=== PATIENT | male | born 1975 | race Caucasian/White ===

== ENCOUNTER 2017-01-14 16:45 | Inpatient (IN) | payer MEDICARE, MEDICAID ==
[2017-01-14 17:00] VITALS: BP 98/58
[2017-01-14] MEDS ORDERED: HALOPERIDOL 5 MG TABLET PO PRN (17:15)
[2017-01-14] MEDS ORDERED: LORazepam 2 MG TABLET PO PRN (17:15)
[2017-01-14] MEDS: ZOLPIDEM TARTRATE 10 MG TABLET PO PRN (23:56)
[2017-01-15 06:18] LABS: BASOPHILS % (AUTO) 0.6 % (0.0-2.0); EOSINOPHILS % (AUTO) 2.2 % (1.0-6.0); HEMATOCRIT 40.5 % (41-53); HEMOGLOBIN 13.7 g/dL (13.5-17.5); LYMPHOCYTES # (AUTO) 2.6 K/uL (1.0-4.8); LYMPHOCYTES % (AUTO) 39.3 % (22.0-44.0); MEAN CORPUSCULAR HEMOGLOBIN 32.4 pg (26.0-34.0); MEAN CORPUSCULAR HGB CONC 33.8 G/dL (31.0-37.0); MEAN CORPUSCULAR VOLUME 96 fL (80-100); MONOCYTES # (AUTO) 0.5 K/uL (0.1-1.0); MONOCYTES % (AUTO) 8.1 % (2.0-9.0); NEUTROPHILS # (AUTO) 3.3 K/uL (1.8-7.7); NEUTROPHILS % (AUTO) 49.8 % (40.0-70.0); PLATELET COUNT (AUTO) 203 K/uL (150-450); RED BLOOD CELL COUNT(AUTO) 4.23 MIL/uL (4.50-5.90); RED CELL DISTRIBUTION WIDTH 15.1 % (11.5-14.5); WHITE BLOOD COUNT (AUTO) 6.6 K/uL (4.5-11.0)
[2017-01-15 06:31] LABS: ALANINE AMINOTRANSFERASE 17 U/L (12-78); ALBUMIN 3.2 g/dL (3.4-5.0); ANION GAP 8 mmol/L (8-16); ASPARTATE AMINOTRANSFERASE 11 U/L (15-37); BILIRUBIN,TOTAL 0.2 mg/dL (0.1-1.0); CALCIUM, TOTAL 8.5 mg/dL (8.8-10.5); CARBON DIOXIDE 28 mmol/L (22-29); CHLORIDE 108 mmol/L (98-107); CHOL/HDL RATIO 2.5 (4.2-7.3); CREATININE 0.71 mg/dL (0.60-1.30); GLOMERULAR FILTR. RATE CALC > 60 mL/min (>60); POTASSIUM 4.2 mmol/L (3.5-5.1); SODIUM SERUM 144 mmol/L (136-145); TOTAL PROTEIN, SERUM 6.4 g/dL (6.4-8.2); UREA NITROGEN, BLOOD 13 mg/dL (7-18)
[2017-01-15 09:00] VITALS: BP 113/72
[2017-01-15] MEDS: ESCITALOPRAM OXALATE 10 MG TABLET PO SCH (11:15)
[2017-01-15] MEDS: NICOTINE 14 MG/24 HOUR PATCH TD SCH (11:15)
[2017-01-15] MEDS ORDERED: BISACODYL 5 MG EC TABLET PO PRN (13:00)
[2017-01-15 16:56] VITALS: BP 107/71
[2017-01-15] MEDS: ZOLPIDEM TARTRATE 10 MG TABLET PO PRN (20:23)
[2017-01-16] MEDS: ESCITALOPRAM OXALATE 10 MG TABLET PO SCH (08:10)
[2017-01-16] MEDS: NICOTINE 14 MG/24 HOUR PATCH TD SCH (08:11)
[2017-01-16 08:16] VITALS: BP 119/78
[2017-01-16] MEDS ORDERED: ESCI10TA PO (11:20)
== END 2017-01-16 14:15 | disposition home or self-care (01) | DRG 885 ==
LOC: 3EC 16:45
PROVIDERS: ADMIT Psychiatry & Neurology Child & Adolescent Psychiatry; ATTEND Psychiatry & Neurology Child & Adolescent Psychiatry
DX: F33.2 Major depressive disorder, recurrent severe without psychotic features (principal); R45.851 Suicidal ideations; F17.200 Nicotine dependence, unspecified, uncomplicated; Z79.899 Other long term (current) drug therapy; F41.9 Anxiety disorder, unspecified; K59.00 Constipation, unspecified; F60.3 Borderline personality disorder

== ENCOUNTER 2018-02-24 11:08 | Inpatient (IN) | payer MEDICARE, MEDICAID ==
[~2018-02-24] VITALS: Ht 172.7 cm; Wt 61.2 kg
[~2018-02-24 11:08] MED LIST: ESCI10TA PO
[2018-02-24 12:28] LABS: BASOPHILS % (AUTO) 0.6 % (0.0-2.0); EOSINOPHILS % (AUTO) 1.5 % (1.0-6.0); HEMATOCRIT 37.9 % (41-53); LYMPHOCYTES # (AUTO) 1.7 K/uL (1.0-4.8); LYMPHOCYTES % (AUTO) 38.7 % (22.0-44.0); MEAN CORPUSCULAR HEMOGLOBIN 31.2 pg (26.0-34.0); MEAN CORPUSCULAR HGB CONC 34.4 G/dL (31.0-37.0); MEAN CORPUSCULAR VOLUME 91 fL (80-100); MONOCYTES # (AUTO) 0.5 K/uL (0.1-1.0); MONOCYTES % (AUTO) 11.6 % (2.0-9.0); NEUTROPHILS # (AUTO) 2.2 K/uL (1.8-7.7); NEUTROPHILS % (AUTO) 47.6 % (40.0-70.0); PLATELET COUNT (AUTO) 288 K/uL (150-450); RED BLOOD CELL COUNT(AUTO) 4.18 MIL/uL (4.50-5.90); RED CELL DISTRIBUTION WIDTH 13.5 % (11.5-14.5)
[2018-02-24 12:35] LABS: ANION GAP 7 mmol/L (8-16); CALCIUM, TOTAL 8.2 mg/dL (8.8-10.5); CARBON DIOXIDE 30 mmol/L (22-29); CHLORIDE 107 mmol/L (98-107); CREATININE 0.88 mg/dL (0.60-1.30); GLOMERULAR FILTR. RATE CALC > 60 mL/min (>60); GLUCOSE,RANDOM 114 mg/dL (70-110); POTASSIUM 3.6 mmol/L (3.5-5.1); SODIUM SERUM 144 mmol/L (136-145); UREA NITROGEN, BLOOD 14 mg/dL (7-18)
[2018-02-24 12:42] LABS: ALANINE AMINOTRANSFERASE 20 U/L (12-78); ALBUMIN 3.3 g/dL (3.4-5.0); ALKALINE PHOSPHATASE 101 U/L (46-116); ASPARTATE AMINOTRANSFERASE 16 U/L (15-37); BILIRUBIN,TOTAL 0.2 mg/dL (0.1-1.0); TOTAL PROTEIN, SERUM 7.3 g/dL (6.4-8.2)
[2018-02-24] MEDS ORDERED: DiphenhydrAMINE HCL 25 MG CAPSULE PO ONE (13:00)
[2018-02-24] MEDS ORDERED: HALOPERIDOL 5 MG TABLET PO ONE (13:00)
[2018-02-24] MEDS: LORazepam 2 MG TABLET PO ONE ×2 (13:08→13:21)
[2018-02-24] MEDS ORDERED: ZOLPIDEM TARTRATE 10 MG TABLET PO PRN (13:15)
[2018-02-24] MEDS ORDERED: HALOPERIDOL LACTATE 5 MG/ML VIAL ONE (13:38)
[2018-02-24] MEDS ORDERED: DiphenhydrAMINE HCL 50 MG/ML VIAL ONE (13:38)
[2018-02-24] MEDS ORDERED: LORazepam 2 MG/ML VIAL ONE (13:38)
[2018-02-24] MEDS ORDERED: HALOPERIDOL LACTATE 5 MG/ML VIAL IM ONE (13:45)
[2018-02-24] MEDS ORDERED: LORazepam 2 MG/ML VIAL IM ONE (13:45)
[2018-02-24] MEDS ORDERED: DiphenhydrAMINE HCL 50 MG/ML VIAL IM ONE (13:45)
[2018-02-24 16:28] VITALS: BP 103/64
[2018-02-24] MEDS ORDERED: GuaiFENesin/D-METHORPHAN [SUGAR-FREE] 200-20MG/10 ML SYRUP UDCUP PO PRN (17:00)
[2018-02-24] MEDS ORDERED: PETROLATUM,WHITE 71 GM JELLY TP PRN (17:00)
[2018-02-24] MEDS ORDERED: MAGNESIUM HYDROXIDE SUSPENSION 30 ML UDCUP PO PRN (17:00)
[2018-02-24] MEDS ORDERED: ALBUTEROL SULFATE HFA 90 MCG/PUFF 8 GM INHALER IH PRN (17:00)
[2018-02-24] MEDS ORDERED: ONDANSETRON HCL 4 MG TABLET PO PRN (17:00)
[2018-02-24] MEDS ORDERED: ACETAMINOPHEN 325 MG TABLET PO PRN (17:00)
[2018-02-24] MEDS ORDERED: NICOTINE 14 MG/24 HOUR PATCH TD PRN (17:00)
[2018-02-24] MEDS ORDERED: MAG HYDROX/AL HYDROX/SIMETH ES 30 ML SUSPENSION UDCUP PO PRN (17:00)
[2018-02-24] MEDS ORDERED: DOCUSATE SODIUM 100 MG CAPSULE PO PRN (17:00)
[2018-02-24] MEDS ORDERED: IBUPROFEN 400 MG TABLET PO PRN (17:00)
[2018-02-24] MEDS ORDERED: LOPERAMIDE HCL 2 MG CAPSULE PO PRN (17:00)
[2018-02-24] MEDS ORDERED: CloNIDine HCL 0.1 MG TABLET PO PRN (17:00)
[2018-02-24] MEDS: BACITRACIN 28.4 GM OINTMENT TP SCH (18:13)
[2018-02-24] MEDS: FERROUS SULFATE 325 MG EC TABLET PO SCH (18:13)
[2018-02-25 04:32] VITALS: BP 118/66
[2018-02-25] MEDS: FERROUS SULFATE 325 MG EC TABLET PO SCH ×3 (06:22→16:35)
[2018-02-25 08:04] VITALS: BP 114/62
[2018-02-25] MEDS: BACITRACIN 28.4 GM OINTMENT TP SCH ×2 (09:09→16:35)
[2018-02-25] MEDS: ARIPiprazole 10 MG TABLET PO SCH (12:05)
[2018-02-25 16:00] VITALS: BP 105/64
[2018-02-25] MEDS: HALOPERIDOL 5 MG TABLET PO PRN (16:35)
[2018-02-25] MEDS: LORazepam 2 MG TABLET PO PRN (16:35)
[2018-02-26] MEDS: FERROUS SULFATE 325 MG EC TABLET PO SCH ×3 (06:53→17:23)
[2018-02-26 07:02] VITALS: BP 109/67
[2018-02-26 08:04] VITALS: BP 111/65
[2018-02-26] MEDS: ARIPiprazole 10 MG TABLET PO SCH (08:30)
[2018-02-26] MEDS: BACITRACIN 28.4 GM OINTMENT TP SCH ×2 (08:33→17:22)
[2018-02-26 08:46] LABS: HEMOGLOBIN A1C 5.2 % (4.5-6.2)
[2018-02-26 09:32] LABS: CHOL/HDL RATIO 2.5 (4.2-7.3); THYROID STIMULATING HORMONE 0.74 uIU/mL (0.36-3.74)
[2018-02-26 16:00] VITALS: BP 112/72
[2018-02-26] MEDS: HALOPERIDOL 5 MG TABLET PO PRN (17:22)
[2018-02-26] MEDS: LORazepam 2 MG TABLET PO PRN (17:22)
[2018-02-27 06:28] VITALS: BP 109/68
[2018-02-27] MEDS: FERROUS SULFATE 325 MG EC TABLET PO SCH ×3 (07:03→17:11)
[2018-02-27 08:04] VITALS: BP 108/74
[2018-02-27] MEDS: LORazepam 2 MG TABLET PO PRN ×2 (08:24→17:11)
[2018-02-27] MEDS: ARIPiprazole 10 MG TABLET PO SCH (08:24)
[2018-02-27] MEDS: BACITRACIN 28.4 GM OINTMENT TP SCH ×2 (08:44→17:11)
[2018-02-27 08:46] LABS: % IRON SATURATION 15.1 % (30-44)
[2018-02-27 16:31] VITALS: BP 116/78
[2018-02-27] MEDS: HALOPERIDOL 5 MG TABLET PO PRN (17:11)
[2018-02-28 06:36] VITALS: BP 118/65
[2018-02-28] MEDS: FERROUS SULFATE 325 MG EC TABLET PO SCH ×2 (06:43→17:00)
[2018-02-28] MEDS: BACITRACIN 28.4 GM OINTMENT TP SCH ×2 (08:30→17:00)
[2018-02-28 08:52] VITALS: BP 114/71
[2018-02-28] MEDS ORDERED: ARIPiprazole 15 MG TABLET PO SCH (09:00)
[2018-02-28 16:24] VITALS: BP 115/75
[2018-03-01 05:32] VITALS: BP 118/74
[2018-03-01] MEDS: FERROUS SULFATE 325 MG EC TABLET PO SCH ×2 (06:13→16:17)
[2018-03-01] MEDS: LORazepam 2 MG TABLET PO PRN ×2 (08:00→16:17)
[2018-03-01] MEDS: ARIPiprazole 15 MG TABLET PO SCH (08:00)
[2018-03-01] MEDS: BACITRACIN 28.4 GM OINTMENT TP SCH ×2 (08:48→16:17)
[2018-03-01 16:05] VITALS: BP 116/70
[2018-03-01] MEDS: HALOPERIDOL 5 MG TABLET PO PRN (16:17)
[2018-03-02] MEDS: FERROUS SULFATE 325 MG EC TABLET PO SCH ×2 (06:22→16:59)
[2018-03-02 06:32] VITALS: BP 118/76
[2018-03-02 08:04] VITALS: BP 107/77
[2018-03-02] MEDS: BACITRACIN 28.4 GM OINTMENT TP SCH ×2 (09:00→16:59)
[2018-03-02] MEDS: ARIPiprazole 15 MG TABLET PO SCH ×2 (09:00→09:33)
[2018-03-02 16:12] VITALS: BP 110/74
[2018-03-03 05:09] VITALS: BP 118/76
[2018-03-03] MEDS: FERROUS SULFATE 325 MG EC TABLET PO SCH (06:33)
[2018-03-03] MEDS ORDERED: FERR-89 PO (08:32)
[2018-03-03] MEDS ORDERED: ARIP30TA PO (08:32)
[2018-03-03] MEDS: ARIPiprazole 15 MG TABLET PO SCH (08:51)
[2018-03-03] MEDS: BACITRACIN 28.4 GM OINTMENT TP SCH (08:51)
[2018-03-03] MEDS: LORazepam 2 MG TABLET PO PRN (08:54)
[2018-03-03] MEDS ORDERED: ARIPiprazole LAUROXIL ER SUSPENSION 882 MG/3.2 ML SYRINGE IM ONE (09:00)
[2018-03-03 09:22] VITALS: BP 117/69
[2018-03-03] MEDS ORDERED: ARIP882S IM (10:47)
== END 2018-03-03 14:08 | disposition home or self-care (01) | DRG 885 ==
LOC: EMS 11:09 → B3A 14:22
PROVIDERS: ADMIT Psychiatry & Neurology Psychiatry; ATTEND Psychiatry & Neurology Psychiatry
DX: F20.0 Paranoid schizophrenia (principal); R45.851 Suicidal ideations; G44.209 Tension-type headache, unspecified, not intractable; F15.90 Other stimulant use, unspecified, uncomplicated; D50.9 Iron deficiency anemia, unspecified; Z91.19 Patient's noncompliance with other medical treatment and regimen
CPT/HCPCS: 82728; 83036; 83540; 83550; 84443; 96372; 99285; G0480; J1200; J1630; J2060

== ENCOUNTER 2018-07-24 17:54 | Inpatient (IN) | payer MEDICARE, MEDICAID ==
[~2018-07-24] VITALS: Ht 167.6 cm; Wt 71.2 kg
[~2018-07-24 17:54] MED LIST changes: +ARIP30TA PO; +ARIP882S IM; -ESCI10TA PO; +FERR-89 PO
[2018-07-24] MEDS ORDERED: ZOLPIDEM TARTRATE 10 MG TABLET PO PRN (20:00)
[2018-07-24] MEDS ORDERED: HALOPERIDOL 5 MG TABLET PO PRN (20:00)
[2018-07-24 20:30] VITALS: BP 127/89
[2018-07-24] MEDS ORDERED: MAG HYDROX/AL HYDROX/SIMETH ES 30 ML SUSPENSION UDCUP PO PRN (20:30)
[2018-07-24] MEDS ORDERED: LOPERAMIDE HCL 2 MG CAPSULE PO PRN (20:30)
[2018-07-24] MEDS ORDERED: ACETAMINOPHEN 325 MG TABLET PO PRN (20:30)
[2018-07-24] MEDS ORDERED: ALBUTEROL SULFATE HFA 90 MCG/PUFF 8 GM INHALER IH PRN (20:30)
[2018-07-24] MEDS ORDERED: PETROLATUM,WHITE 28 GM JELLY TP PRN (20:30)
[2018-07-24] MEDS ORDERED: IBUPROFEN 400 MG TABLET PO PRN (20:30)
[2018-07-24] MEDS ORDERED: DOCUSATE SODIUM 100 MG CAPSULE PO PRN (20:30)
[2018-07-24] MEDS ORDERED: NICOTINE 14 MG/24 HOUR PATCH TD PRN (20:30)
[2018-07-24] MEDS ORDERED: GuaiFENesin/D-METHORPHAN [SUGAR-FREE] 200-20MG/10 ML SYRUP UDCUP PO PRN (20:30)
[2018-07-24] MEDS: BACITRACIN 28.4 GM OINTMENT TP SCH (21:27)
[2018-07-25 07:11] VITALS: BP 115/65
[2018-07-25] MEDS: BACITRACIN 28.4 GM OINTMENT TP SCH ×2 (08:36→16:33)
[2018-07-25 08:38] LABS: BASOPHILS % (AUTO) 0.4 % (0.0-2.0); EOSINOPHILS % (AUTO) 3.8 % (1.0-6.0); HEMATOCRIT 41.2 % (41-53); HEMOGLOBIN 13.9 g/dL (13.5-17.5); LYMPHOCYTES # (AUTO) 1.4 K/uL (1.0-4.8); LYMPHOCYTES % (AUTO) 26.2 % (22.0-44.0); MEAN CORPUSCULAR HEMOGLOBIN 30.8 pg (26.0-34.0); MEAN CORPUSCULAR HGB CONC 33.7 G/dL (31.0-37.0); MEAN CORPUSCULAR VOLUME 91 fL (80-100); MONOCYTES # (AUTO) 0.4 K/uL (0.1-1.0); MONOCYTES % (AUTO) 7.4 % (2.0-9.0); NEUTROPHILS # (AUTO) 3.4 K/uL (1.8-7.7); NEUTROPHILS % (AUTO) 62.2 % (40.0-70.0); PLATELET COUNT (AUTO) 245 K/uL (150-450); RED BLOOD CELL COUNT(AUTO) 4.51 MIL/uL (4.50-5.90); RED CELL DISTRIBUTION WIDTH 14.3 % (11.5-14.5)
[2018-07-25 08:41] VITALS: BP 108/63
[2018-07-25 09:45] LABS: ALANINE AMINOTRANSFERASE 18 U/L (12-78); ALBUMIN 3.2 g/dL (3.4-5.0); ALKALINE PHOSPHATASE 80 U/L (46-116); ANION GAP 7 mmol/L (8-16); ASPARTATE AMINOTRANSFERASE 18 U/L (15-37); BILIRUBIN,TOTAL 0.3 mg/dL (0.1-1.0); CALCIUM, TOTAL 8.6 mg/dL (8.8-10.5); CARBON DIOXIDE 29 mmol/L (22-29); CHLORIDE 104 mmol/L (98-107); CHOL/HDL RATIO 2.7 (4.2-7.3); CHOLESTEROL 128 mg/dL (131-200); CREATININE 0.74 mg/dL (0.60-1.30); FREE T4 (FREE THYROXINE) 1.08 ng/dL (0.76-1.46); GLOMERULAR FILTR. RATE CALC > 60 mL/min (>60); GLUCOSE,RANDOM 98 mg/dL (70-110); HDL CHOLESTEROL 48 mg/dL (40-60); LDL CHOL (CALC.) 71 mg/dL (0-130); SODIUM SERUM 140 mmol/L (136-145); TOTAL PROTEIN, SERUM 7.2 g/dL (6.4-8.2); TRIGLYCERIDES 45 mg/dL (15-150); UREA NITROGEN, BLOOD 13 mg/dL (7-18)
[2018-07-25 09:47] LABS: HEMOGLOBIN A1C 5.7 % (4.5-6.2)
[2018-07-25 16:11] VITALS: BP 125/75
[2018-07-25] MEDS: MAGNESIUM HYDROXIDE SUSPENSION 30 ML UDCUP PO PRN (16:16)
[2018-07-25] MEDS: OLANZapine 10 MG TABLET PO SCH (20:38)
[2018-07-25] MEDS: DIVALPROEX SODIUM 500 MG ER TABLET PO SCH (20:38)
[2018-07-26 01:15] VITALS: BP 121/81
[2018-07-26 08:41] VITALS: BP 110/68
[2018-07-26] MEDS: OLANZapine 10 MG TABLET PO SCH ×2 (08:45→20:07)
[2018-07-26] MEDS: BACITRACIN 28.4 GM OINTMENT TP SCH ×2 (08:46→16:28)
[2018-07-26 16:14] VITALS: BP 118/61
[2018-07-26] MEDS: DIVALPROEX SODIUM 500 MG ER TABLET PO SCH (20:07)
[2018-07-27 01:05] VITALS: BP 121/62
[2018-07-27 08:16] VITALS: BP 128/72
[2018-07-27] MEDS: OLANZapine 10 MG TABLET PO SCH ×2 (08:21→20:51)
[2018-07-27] MEDS: BACITRACIN 28.4 GM OINTMENT TP SCH ×2 (08:21→16:40)
[2018-07-27 17:26] VITALS: BP 111/76
[2018-07-27] MEDS: DIVALPROEX SODIUM 500 MG ER TABLET PO SCH (20:51)
[2018-07-28 01:20] VITALS: BP 113/69
[2018-07-28 08:16] VITALS: BP 105/60
[2018-07-28] MEDS: BACITRACIN 28.4 GM OINTMENT TP SCH ×2 (08:26→16:48)
[2018-07-28] MEDS: OLANZapine 10 MG TABLET PO SCH ×2 (08:26→20:36)
[2018-07-28 16:11] VITALS: BP 108/60
[2018-07-28] MEDS: DIVALPROEX SODIUM 500 MG ER TABLET PO SCH (20:36)
[2018-07-29 03:06] VITALS: BP 114/68
[2018-07-29 08:35] VITALS: BP 117/72
[2018-07-29] MEDS: OLANZapine 10 MG TABLET PO SCH ×2 (08:50→20:31)
[2018-07-29] MEDS: BACITRACIN 28.4 GM OINTMENT TP SCH ×2 (08:51→16:30)
[2018-07-29] MEDS: VENLAFAXINE HCL 75 MG ER CAPSULE PO SCH (12:45)
[2018-07-29 16:10] VITALS: BP 110/62
[2018-07-29] MEDS: DIVALPROEX SODIUM 500 MG ER TABLET PO SCH (20:31)
[2018-07-30 04:41] VITALS: BP 116/62
[2018-07-30 08:06] VITALS: BP 132/60
[2018-07-30] MEDS: OLANZapine 10 MG TABLET PO SCH ×2 (08:36→20:37)
[2018-07-30] MEDS: VENLAFAXINE HCL 75 MG ER CAPSULE PO SCH (08:36)
[2018-07-30] MEDS: BACITRACIN 28.4 GM OINTMENT TP SCH ×2 (08:37→16:41)
[2018-07-30 16:37] VITALS: BP 106/68
[2018-07-30] MEDS: DIVALPROEX SODIUM 500 MG ER TABLET PO SCH (20:37)
[2018-07-31 01:35] VITALS: BP 110/68
[2018-07-31 08:08] VITALS: BP 121/88
[2018-07-31] MEDS: OLANZapine 10 MG TABLET PO SCH (08:19)
[2018-07-31] MEDS: BACITRACIN 28.4 GM OINTMENT TP SCH ×2 (08:19→16:34)
[2018-07-31] MEDS: VENLAFAXINE HCL 75 MG ER CAPSULE PO SCH (08:19)
[2018-07-31 16:24] VITALS: BP 113/62
[2018-07-31] MEDS: DIVALPROEX SODIUM 500 MG ER TABLET PO SCH (20:39)
[2018-07-31] MEDS: OLANZapine 7.5 MG TABLET PO SCH (20:39)
[2018-08-01 00:18] VITALS: BP 112/62
[2018-08-01 08:07] VITALS: BP 103/72
[2018-08-01] MEDS: VENLAFAXINE HCL 75 MG ER CAPSULE PO SCH (08:24)
[2018-08-01] MEDS: BACITRACIN 28.4 GM OINTMENT TP SCH ×2 (08:24→17:01)
[2018-08-01] MEDS: OLANZapine 7.5 MG TABLET PO SCH ×2 (08:24→20:29)
[2018-08-01 18:15] VITALS: BP 102/67
[2018-08-01] MEDS: DIVALPROEX SODIUM 500 MG ER TABLET PO SCH (20:29)
[2018-08-02 01:15] VITALS: BP 120/64
[2018-08-02 06:13] LABS: GLUCOMETER DEV NAME(LOC) BV2S.; GLUCOSE,POINT OF CARE 99 MG/DL (70-110)
[2018-08-02 08:40] VITALS: BP 106/60
[2018-08-02] MEDS: VENLAFAXINE HCL 75 MG ER CAPSULE PO SCH (08:56)
[2018-08-02] MEDS: OLANZapine 7.5 MG TABLET PO SCH ×2 (08:57→20:42)
[2018-08-02] MEDS: BACITRACIN 28.4 GM OINTMENT TP SCH ×2 (08:57→16:40)
[2018-08-02 16:06] VITALS: BP 106/63
[2018-08-02] MEDS: DIVALPROEX SODIUM 500 MG ER TABLET PO SCH (20:41)
[2018-08-03 05:22] VITALS: BP 105/67
[2018-08-03 08:27] VITALS: BP 109/60
[2018-08-03] MEDS: OLANZapine 7.5 MG TABLET PO SCH ×2 (08:29→20:31)
[2018-08-03] MEDS: VENLAFAXINE HCL 75 MG ER CAPSULE PO SCH (08:29)
[2018-08-03] MEDS: BACITRACIN 28.4 GM OINTMENT TP SCH ×2 (08:30→16:49)
[2018-08-03 16:09] VITALS: BP 119/77
[2018-08-03] MEDS: DIVALPROEX SODIUM 500 MG ER TABLET PO SCH (20:31)
[2018-08-04 00:30] VITALS: BP 112/65
[2018-08-04 08:28] VITALS: BP 103/78
[2018-08-04] MEDS: OLANZapine 7.5 MG TABLET PO SCH ×2 (08:42→20:41)
[2018-08-04] MEDS: VENLAFAXINE HCL 75 MG ER CAPSULE PO SCH (08:42)
[2018-08-04] MEDS: BACITRACIN 28.4 GM OINTMENT TP SCH ×2 (08:43→16:41)
[2018-08-04 16:11] VITALS: BP 102/66
[2018-08-04] MEDS: DIVALPROEX SODIUM 500 MG ER TABLET PO SCH (20:41)
[2018-08-05 05:48] VITALS: BP 108/72
[2018-08-05 08:37] VITALS: BP 108/65
[2018-08-05] MEDS: VENLAFAXINE HCL 75 MG ER CAPSULE PO SCH (08:43)
[2018-08-05] MEDS: OLANZapine 7.5 MG TABLET PO SCH ×2 (08:43→20:43)
[2018-08-05] MEDS: BACITRACIN 28.4 GM OINTMENT TP SCH ×2 (08:44→17:08)
[2018-08-05 16:06] VITALS: BP 106/74
[2018-08-05] MEDS: DIVALPROEX SODIUM 500 MG ER TABLET PO SCH (20:43)
[2018-08-06 05:09] VITALS: BP 111/75
[2018-08-06 08:19] VITALS: BP 109/68
[2018-08-06] MEDS: MAGNESIUM HYDROXIDE SUSPENSION 30 ML UDCUP PO PRN (08:34)
[2018-08-06] MEDS: BACITRACIN 28.4 GM OINTMENT TP SCH ×2 (08:34→16:36)
[2018-08-06] MEDS: OLANZapine 7.5 MG TABLET PO SCH ×2 (08:34→20:42)
[2018-08-06] MEDS: VENLAFAXINE HCL 75 MG ER CAPSULE PO SCH (08:34)
[2018-08-06 16:13] VITALS: BP 112/67
[2018-08-06] MEDS: DIVALPROEX SODIUM 500 MG ER TABLET PO SCH (20:42)
[2018-08-06] MEDS: LORazepam 2 MG TABLET PO PRN (21:17)
[2018-08-07 01:46] VITALS: BP 105/73
[2018-08-07] MEDS: LACTULOSE 20 GM/30 ML SOLUTION UDCUP PO PRN (01:51)
[2018-08-07 08:13] VITALS: BP 120/70
[2018-08-07] MEDS: VENLAFAXINE HCL 75 MG ER CAPSULE PO SCH (08:28)
[2018-08-07] MEDS: OLANZapine 7.5 MG TABLET PO SCH ×2 (08:28→20:40)
[2018-08-07] MEDS: BACITRACIN 28.4 GM OINTMENT TP SCH ×2 (08:28→16:33)
[2018-08-07] MEDS: MAGNESIUM HYDROXIDE SUSPENSION 30 ML UDCUP PO PRN (12:37)
[2018-08-07 16:36] VITALS: BP 104/60
[2018-08-07] MEDS: DIVALPROEX SODIUM 500 MG ER TABLET PO SCH (20:40)
[2018-08-08 03:26] VITALS: BP 110/74
[2018-08-08 08:11] VITALS: BP 108/61
[2018-08-08] MEDS: BACITRACIN 28.4 GM OINTMENT TP SCH ×2 (08:23→16:30)
[2018-08-08] MEDS: OLANZapine 7.5 MG TABLET PO SCH ×2 (08:23→20:37)
[2018-08-08] MEDS: VENLAFAXINE HCL 75 MG ER CAPSULE PO SCH (08:23)
[2018-08-08] MEDS: LACTULOSE 20 GM/30 ML SOLUTION UDCUP PO PRN (10:01)
[2018-08-08] MEDS ORDERED: BISACODYL 5 MG EC TABLET PO PRN (15:45)
[2018-08-08 16:48] VITALS: BP 103/60
[2018-08-08] MEDS: LORazepam 2 MG TABLET PO PRN (17:04)
[2018-08-08 17:05] VITALS: BP 112/71
[2018-08-08] MEDS: DIVALPROEX SODIUM 500 MG ER TABLET PO SCH (20:37)
[2018-08-09 06:34] VITALS: BP 110/65
[2018-08-09 08:12] VITALS: BP 110/73
[2018-08-09] MEDS: BACITRACIN 28.4 GM OINTMENT TP SCH ×2 (08:26→16:42)
[2018-08-09] MEDS: OLANZapine 7.5 MG TABLET PO SCH ×2 (08:26→20:34)
[2018-08-09] MEDS: VENLAFAXINE HCL 75 MG ER CAPSULE PO SCH (08:26)
[2018-08-09] MEDS ORDERED: PALIPERIDONE PALMITATE 234 MG/1.5 ML SYRINGE IM ONE (11:45)
[2018-08-09 16:10] VITALS: BP 106/68
[2018-08-09] MEDS: LORazepam 2 MG TABLET PO PRN (17:22)
[2018-08-09] MEDS: DIVALPROEX SODIUM 500 MG ER TABLET PO SCH (20:34)
[2018-08-10 01:11] VITALS: BP 102/62
[2018-08-10 08:22] VITALS: BP 117/71
[2018-08-10] MEDS: VENLAFAXINE HCL 75 MG ER CAPSULE PO SCH (08:32)
[2018-08-10] MEDS: BACITRACIN 28.4 GM OINTMENT TP SCH ×2 (08:32→16:17)
[2018-08-10] MEDS: OLANZapine 7.5 MG TABLET PO SCH ×2 (08:32→20:11)
[2018-08-10] MEDS ORDERED: DIVA-78 PO (10:48)
[2018-08-10] MEDS ORDERED: VENL-67 PO (10:49)
[2018-08-10] MEDS ORDERED: OLAN7.5T2 PO (10:49)
[2018-08-10] MEDS ORDERED: BENZTROPINE MESYLATE 1 MG/ML 2 ML VIAL IM ONE (12:15)
[2018-08-10 12:18] VITALS: BP 118/73
[2018-08-10 16:05] VITALS: BP 127/60
[2018-08-10] MEDS: BENZTROPINE MESYLATE 1 MG TABLET PO SCH (16:17)
[2018-08-10 17:00] VITALS: BP 129/63
[2018-08-10] MEDS ORDERED: ACETAMINOPHEN 325 MG TABLET PO PRN (18:15)
[2018-08-10] MEDS: DIVALPROEX SODIUM 500 MG ER TABLET PO SCH (20:11)
[2018-08-11 01:13] VITALS: BP 107/68
[2018-08-11 08:00] LABS: APPEARANCE,URINE CLEAR (CLEAR); BILIRUBIN,URINE NEGATIVE (NEGATIVE); GLUCOSE, URINE (UA) NEGATIVE (NEGATIVE); KETONES,URINE NEGATIVE (NEGATIVE); LEUKOCYTE ESTERASE ,URINE NEGATIVE (NEGATIVE); NITRATE,URINE NEGATIVE (NEGATIVE); OCCULT BLOOD,URINE NEGATIVE (NEGATIVE); PROTEIN,URINE NEGATIVE (NEGATIVE); UROBILINOGEN,URINE 0.2 mg/dL (<=1.0)
[2018-08-11 08:01] LABS: BACTERIA,URINE None Seen /HPF (None Seen); RBC,URINE None Seen /HPF (0-2); WBC,URINE None Seen /HPF (0-5)
[2018-08-11 08:17] VITALS: BP 103/62
[2018-08-11] MEDS: BENZTROPINE MESYLATE 1 MG TABLET PO SCH ×2 (08:37→16:33)
[2018-08-11] MEDS: OLANZapine 7.5 MG TABLET PO SCH ×2 (08:37→20:31)
[2018-08-11] MEDS: VENLAFAXINE HCL 75 MG ER CAPSULE PO SCH (08:37)
[2018-08-11] MEDS: BACITRACIN 28.4 GM OINTMENT TP SCH ×2 (09:17→16:33)
[2018-08-11 16:10] VITALS: BP 109/64
[2018-08-11] MEDS: LORazepam 2 MG TABLET PO PRN (19:11)
[2018-08-11] MEDS: DIVALPROEX SODIUM 500 MG ER TABLET PO SCH (20:31)
[2018-08-12 00:30] VITALS: BP 112/69
[2018-08-12] MEDS ORDERED: BENZ1TAB10 PO (07:25)
[2018-08-12] MEDS ORDERED: PALI156D IM (07:26)
[2018-08-12 08:21] VITALS: BP 115/68
[2018-08-12] MEDS: OLANZapine 7.5 MG TABLET PO SCH (08:28)
[2018-08-12] MEDS: BENZTROPINE MESYLATE 1 MG TABLET PO SCH (08:28)
[2018-08-12] MEDS: VENLAFAXINE HCL 75 MG ER CAPSULE PO SCH (08:28)
[2018-08-12] MEDS: BACITRACIN 28.4 GM OINTMENT TP SCH (08:29)
[2018-08-12] MEDS ORDERED: OLANZapine 7.5 MG TABLET PO SCH (09:00)
[2018-08-12] MEDS ORDERED: VENLAFAXINE HCL 75 MG ER CAPSULE PO SCH (09:00)
[2018-08-12] MEDS ORDERED: DIVALPROEX SODIUM 500 MG DR TABLET PO SCH (21:00)
[2018-08-13] MEDS ORDERED: PALIPERIDONE PALMITATE 156 MG/ML SYRINGE IM ONE (09:00)
[2018-08-16] MEDS ORDERED: PALIPERIDONE PALMITATE 156 MG/ML SYRINGE IM ONE (09:00)
== END 2018-08-12 13:15 | disposition home or self-care (01) | DRG 885 ==
LOC: B2X 19:53
PROVIDERS: ADMIT Psychiatry & Neurology Psychiatry; ATTEND Psychiatry & Neurology Psychiatry
DX: F20.0 Paranoid schizophrenia (principal); F15.20 Other stimulant dependence, uncomplicated; E44.1 Mild protein-calorie malnutrition; E83.51 Hypocalcemia; K59.00 Constipation, unspecified; F99 Mental disorder, not otherwise specified; D64.9 Anemia, unspecified; Z79.899 Other long term (current) drug therapy; Z91.5 Personal history of self-harm; Z68.25 Body mass index [BMI] 25.0-25.9, adult
CPT/HCPCS: 83036; 84439; 84443; 87081; J0515